=== PATIENT | female | born 1980 | race Caucasian/White ===

== ENCOUNTER 2025-03-05 03:58 | Inpatient (IN) | payer OTHER ==
[2025-03-05] MEDS ORDERED: LIDOCAINE 0.5% (PF) 5 MG/ML (50 ML SDV) SQ PRN (04:39)
[2025-03-05] MEDS ORDERED: TERBUTALINE 1 MG/ML VIAL SQ PRN (04:39)
[2025-03-05] MEDS ORDERED: miSOPROStoL 200 MCG TAB PO PRN (04:39)
[2025-03-05] MEDS ORDERED: CARBOPROST TROMETHAMINE 250 MCG/ML 1 ML AMP IM PRN (04:39)
[2025-03-05] MEDS ORDERED: METHYLERGONOVINE 0.2 MG/ML 1 ML AMP IM PRN (04:39)
[2025-03-05] MEDS ORDERED: TRANEXAMIC 1,000 MG/100ML-NACL 1,000 MG in EMPTY BAG 1 BAG IV PRN (04:39)
[2025-03-05] MEDS ORDERED: miSOPROStoL 200 MCG TAB RECTAL PRN (04:39)
[2025-03-05] MEDS ORDERED: OXYTOCIN 10 UNIT/ML 1 ML VIAL IM PRN (04:39)
[2025-03-05] MEDS: AMPICILLIN 2,000 MG in SODIUM CHLORIDE 0.9% 100 ML IVPB STA (04:54)
[2025-03-05] MEDS: LACTATED RINGERS 1,000 ML IV SCH (04:57)
[2025-03-05 05:45] LABS: RBC 3.59 10*6/uL (4.10-5.20); WBC 16.56 10*3/uL (4.50-10.00)
[2025-03-05 05:46] LABS: Basophils # (A) 0.03 10*3/uL (0.00-0.10); Basophils % (A) 0.2 %; Eosinophils # (A) 0.03 10*3/uL (0.04-0.35); Eosinophils % (A) 0.2 %; HCT 31.3 % (37.2-46.3); HGB 10.4 g/dL (12.0-15.0); Lymphocytes # (A) 0.84 10*3/uL (0.90-5.00); Lymphocytes % (A) 5.1 %; MCHC 33.2 g/dL (32.0-37.0); MCV 87.2 fL (80.0-97.0); Mean Platelet Volume 10.8 fL (9.5-12.2); Monocytes # (A) 0.91 10*3/uL (0.20-1.00); Monocytes % (A) 5.5 %; Neutrophils # (A) 14.67 10*3/uL (1.80-7.70); Neutrophils % (A) 88.5 %; Platelet Count 275 10*3/uL (140-440); RDW 14.1 % (11.5-14.5)
--- NOTE | 2025-03-05 05:52 | P.HPOB ---
History of Present Illness H&P Date: 03/05/25 Chief Complaint: IUP at 41-2/7 weeks, labor This is a 44-year-old 5 para 4 at 41-2/7 weeks that presents to labor and delivery with complaints of regular painful contractions. Estimated due date of 02/24 based on last menstrual period. Patient was previously receiving care outside of the [facility] but transferred to [facility]. Patient has a history of bipolar for which she is seeing [facility], they want to be notified when delivery happens. care has been complicated by diagnosis of intrauterine growth restriction, testing has been normal. Patient had spontaneous rupture of membranes just after admission at [facility]. On blood work this patient is of the type of A+, rubella status immune, hepatitis B surface engine negative, RPR is nonreactive, grew beta strep culture is positive. Review of Systems Constitutional: Denies chills, Denies fatigue, Denies fever Ears, nose, mouth and throat: Denies headache Cardiovascular: Denies leg edema Respiratory: Denies dyspnea Gastrointestinal: Denies nausea, Denies vomiting Genitourinary: Reports Past Medical History History of Any Multi-Drug Resistant Organisms: None Reported Smoking Status: Never smoker Medications and Allergies Home Medications Medication Instructions Recorded Confirmed Type Vit No.179/Iron/Folic 1 each PO DAILY 03/05/25 03/05/25 History [ Tablet] QUEtiapine [SEROquel] 50 mg PO HS 03/05/25 03/05/25 History lamoTRIgine [LaMICtal Xr] 100 mg PO DAILY 03/05/25 03/05/25 History Allergies Allergy/AdvReac Type Severity Reaction Status Date / Time No Known Allergies Allergy Verified 03/05/25 04:04 Exam Osteopathic Statement: *. No significant issues noted on an osteopathic structural exam other than those noted in the History and Physical/Consult. Vital Signs Temp Pulse Resp BP 03/05/25 04:11 97.9 F 93 20 125/71 Intake and Output 03/04/25 03/04/25 03/05/25 14:59 22:59 06:59 Other: Weight 68.946 kg Targeted physical exam is performed on this date in general this is a patient in active labor, breathing appears nonlabored, uterus is gravid, on cervical exam she is completely dilated at 0 station. heart tones are noted to be category 1 contractions are not graphing and she is moving the toco, currently refusing to push. Assessment and Plan (1) Post-dates Current Visit: Yes Status: Acute Code(s): O48.0 - POST-TERM SNOMED Code(s): 10418729 (2) growth restriction Current Visit: Yes Status: Acute Code(s): AYY5066 - SNOMED Code(s): 86521488 (3) Positive GBS test Current Visit: Yes Status: Acute Code(s): B95.1 - STREPTOCOCCUS, GROUP B, CAUSING DISEASES [facility] SNOMED Code(s): 496691613 (4) AMA (advanced maternal age) multigravida 35+ Current Visit: Yes Status: Acute Code(s): O09.529 - SUPERVISION OF ELDERLY MULTIGRAVIDA, UNSPECIFIED TRIMESTER SNOMED Code(s): 607417334 (5) Bipolar 1 disorder Current Visit: Yes Status: Acute Code(s): F31.9 - BIPOLAR DISORDER, UNSPECIFIED SNOMED Code(s): 874722343 Plan: Admit to labor and delivery Anticipate spontaneous vaginal delivery
[2025-03-05] MEDS: OXYTOCIN 30 UNITS/500 ML NS 30 UNIT in SALINE 1 500ML.BAG IV SCH (07:10)
[2025-03-05] MEDS ORDERED: LANOLIN CREAM 1 GM TUBE TOPICAL PRN (07:12)
[2025-03-05] MEDS ORDERED: diphenhydrAMINE 50 MG CAP PO PRN (07:12)
[2025-03-05] MEDS ORDERED: ZOLPIDEM 5 MG TAB PO PRN (07:12)
[2025-03-05] MEDS ORDERED: BENZOCAINE/MENTHOL SPRAY 1 GM/SPRAY AEROSOL TOPICAL PRN (07:12)
[2025-03-05] MEDS ORDERED: diphenhydrAMINE 25 MG CAP PO PRN (07:12)
[2025-03-05] MEDS ORDERED: SIMETHICONE 80 MG CHEWABLE PO PRN (07:12)
[2025-03-05] MEDS ORDERED: diphenhydrAMINE 50 MG/ML 1 ML VIAL IVP PRN ×2 (07:12)
--- NOTE | 2025-03-05 07:16 | P.PROBDLV ---
Vaginal Delivery Note - . Vaginal Delivery Note: Date of service 03/05/2025 Findings viable female delivered at 701, weight of 8 pounds 7.6 ounces This is a 44-year-old 5 para 4-0-0-4 that presented to labor and delivery in active labor. Patient was admitted. Patient had spontaneous rupture of membranes clear in nature soon after admission. Patient progressed to complete began pushing and had a normal spontaneous vaginal delivery of a viable female infant at 701, weight of 8 pounds 7.6 ounces, Apgars of 9 and 9 at 1 and 5 minutes respectively. Umbilical cord was doubly clamped and cut, placenta was delivered spontaneously intact with a three-vessel cord being noted. On inspection the patient's vaginal vault no lacerations were appreciated. Uterus was noted to be firm below the umbilicus. All counts were to be correct x 2. Patient and infant tolerated delivery well and are resting comfortably
[2025-03-05] MEDS: SENNOSIDES-DOCUSATE SODIUM 1 EACH TAB PO SCH (07:49)
[2025-03-05] MEDS: IBUPROFEN 800 MG TAB PO SCH (07:49)
[2025-03-05] MEDS: ACETAMINOPHEN TAB 500 MG TAB PO SCH (12:23)
[2025-03-06 06:39] LABS: Basophils # (A) 0.03 10*3/uL (0.00-0.10); Basophils % (A) 0.2 %; Eosinophils # (A) 0.04 10*3/uL (0.04-0.35); Eosinophils % (A) 0.3 %; HCT 30.6 % (37.2-46.3); HGB 10.5 g/dL (12.0-15.0); Lymphocytes % (A) 10.8 %; MCH 29.7 pg (27.0-32.0); MCHC 34.3 g/dL (32.0-37.0); MCV 86.4 fL (80.0-97.0); Mean Platelet Volume 10.2 fL (9.5-12.2); Monocytes # (A) 0.93 10*3/uL (0.20-1.00); Monocytes % (A) 6.7 %; Neutrophils % (A) 81.4 %; Platelet Count 269 10*3/uL (140-440); RBC 3.54 10*6/uL (4.10-5.20); RDW 14.4 % (11.5-14.5); WBC 13.88 10*3/uL (4.50-10.00)
--- NOTE | 2025-03-06 12:40 | P.PNOBGVD ---
Subjective - Subjective Principal diagnosis: s/p Interval history: The patient is doing well this morning and had no acute events overnight. She complains of pubic bone pain this morning. She reports minimal lochia, passing flatus, voiding without difficulty, ambulating, and eating/drinking without nausea or vomiting. is in the nursery, formula feeding. She denies chest pain, shortness of breathing, fevers, or chills overnight. She denies pain or swelling in the legs. Patient reports: Reports appetite normal, Reports voiding normally, Reports pain well controlled, Reports ambulating normally [place]: other (in nursery) Objective - Latest Vital Signs Latest vital signs: Vital Signs Temp Pulse Resp BP Pulse Ox 03/06/25 08:00 98.6 F 99 16 134/74 03/06/25 00:00 107 H 16 128/78 97 03/05/25 16:00 98.3 F 78 15 137/80 Intake and Output 03/05/25 03/06/25 03/06/25 22:59 06:59 14:59 Output Total 250 Balance -250 Output: Output, Quantitative 250 Blood Loss Other: # Voids 2 1 - Exam Extremities: Present: normal Abdomen: Present: normal appearance, soft Uterus: Present: normal, firm - Labs Labs: Abnormal Lab Results - Last 24 Hours (Table) 03/06/25 Range/Units 06:29 WBC 13.88 H (4.50-10.00) 10*3/uL RBC 3.54 L (4.10-5.20) 10*6/uL Hgb 10.5 L (12.0-15.0) g/dL Hct 30.6 L (37.2-46.3) % Immature Gran # 0.08 H (0.00-0.04) 10*3/uL Neutrophils # 11.30 H (1.80-7.70) 10*3/uL Assessment and Plan Assessment: 44 year old PPD#1 s/p , bipolar disorder Plan: 1. . Patient meeting milestones appropriately. 2. Elevated BPs. Continue to monitor. 3. Bipolar disorder. Following with [facility]. Restart Seroquel 100mg qHS and Lamictal 200mg qHS per [facility]. c/psych. 4. Viable female . In the nursery for leukocytosis. Dispo: anticipate discharge home tomorrow
[2025-03-06] MEDS: lamoTRIgine 100 MG TAB PO SCH (16:23)
[2025-03-06] MEDS: HYDROCORTISONE 2.5% RECTAL CREAM 30 GM TUBE RECTAL PRN (19:05)
[2025-03-06] MEDS: QUEtiapine 100 MG TAB PO SCH (21:09)
[2025-03-06] MEDS: AMPICILLIN 1,000 MG in SODIUM CHLORIDE 0.9% 50 ML IVPB SCH (21:19)
--- NOTE | 2025-03-07 11:18 | P.DS ---
Providers Date of admission: 03/05/25 04:19 Expected date of discharge: 03/07/25 Attending physician: Gemma Veronica MD Consults: 03/06/25 08:19 Consult Physician Routine Consulting Provider: Psychiatry - [facility] Psychiatry Consult Reason/Comments: Bipolar disorder Do you want consulting provider notified?: Already Contacted Primary care physician: Stated None Hospital Course: 44 year old PPD#2 s/p without complications. Patient does have a significant history of bipolar disorder. She follows with [facility] and they have restarted her medications and checked on her while inpatient. The infant is up for adoption to her niece. Social work has seen the patient. The patient is doing well this morning and had no acute events overnight. She has no complaints this morning. She reports minimal lochia, passing flatus, voiding without difficulty, ambulating, and eating/drinking without nausea or vomiting. doing well in the nursery. She denies chest pain, shortness of breathing, fevers, or chills overnight. She denies pain or swelling in the legs. restrictions are reviewed with the patient including pelvic rest for 6 weeks. The patient is encouraged to call the office if she experiences any heavy bleeding, foul-smelling discharge, breast complaints, or any if she has any other concerns. She will follow up in the office in 6 weeks for exam. All questions are answered. Patient Condition at Discharge: Good Plan - Discharge Summary Discharge Rx Participant: No New Discharge Prescriptions: New Ibuprofen [Motrin] 600 mg PO Q6HR PRN #30 tab PRN Reason: Mild Pain (Scale 1 To 3) Docusate [Colace] 100 mg PO BID PRN #60 capsule PRN Reason: Constipation Acetaminophen Tab [Tylenol] 650 mg PO Q6H PRN #30 tab PRN Reason: Mild Pain (Scale 1 To 3) No Action Vit No.179/Iron/Folic [ Tablet] 1 each PO DAILY lamoTRIgine [LaMICtal Xr] 100 mg PO DAILY QUEtiapine [SEROquel] 50 mg PO HS Discharge Medication List Vit No.179/Iron/Folic [ Tablet] 1 each PO DAILY 03/05/25 [History] QUEtiapine [SEROquel] 50 mg PO HS 03/05/25 [History] lamoTRIgine [LaMICtal Xr] 100 mg PO DAILY 03/05/25 [History] Acetaminophen Tab [Tylenol] 650 mg PO Q6H PRN #30 tab 03/07/25 [Rx] Docusate [Colace] 100 mg PO BID PRN #60 capsule 03/07/25 [Rx] Ibuprofen [Motrin] 600 mg PO Q6HR PRN #30 tab 03/07/25 [Rx] Follow up Appointment(s)/Referral(s): Gemma Veronica MD [STAFF PHYSICIAN] - 04/16/25 11:00 am Activity/Diet/Wound Care/Special Instructions: Instructions 1. Do not begin any exercise program for 3 weeks. 2. Do not resume sexual relations for 6 weeks or longer if uncomfortable. 3. You may take tub baths or showers at any time. 4. You may use tampons if desired after 6 weeks. 5. Keep any areas repaired with stitches clean and dry. 6. If you are not nursing, wear a good fitting, supportive bra during the day and limit fluid intake for at least 1 week to prevent breast engorgement. 7. Call the office, , within the next week to make appointment for your 6 week checkup if it has not already been made. 8. Report any of the following occurrences to the doctor promptly: a. Heavy, excessive bleeding b. Chills, fever c. Burning or frequency of urination d. Pain or redness and breasts if nursing e. Increasing pain or swelling of vulva (stitches). In addition to the above instructions, the following additional should be followed: 1. No heavy lifting or straining (exercising) until after 6 week checkup. 2. Keep abdominal incision clean and dry: You may wear a dressing if more comfortable. 3. Make office appointment for 2 weeks after delivery date. Discharge Disposition: HOME SELF-CARE
--- NOTE | 2025-03-07 13:43 | P.CN ---
Psychiatric Consult - . Consult date: 03/07/25 Consult:: 03/07/25 13:37 IDENTIFYING DATA: This patient is a 44-year-old female, unemployed and living with mother REASON FOR REFERRAL: Psychiatry was consulted for bipolar disorder HISTORY OF PRESENT ILLNESS: The patient presented to the hospital in active labor, ultimately delivering female infant vaginally. Patient expresses a 10- year history of bipolar 1 disorder with many ups and downs since then. She states previously being however was from her and ultimately lost her children and moved from [place] to [place], currently living with her mother. 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 She prefers for her relatives to adopt her daughter so that she can remain in contact with her. She reports being on Seroquel 50 mg at bedtime, Lamictal 100 mg at bedtime, Caplyta 42 mg daily for close to a year. She was unable to tolerate the increase in Seroquel to 100 mg, reporting adverse effects including dry mouth and sedation. She was encouraged to speak to her outpatient psychiatrist about possibly stopping this medication as she is currently on 2 medications that works similarly. She follows with [facility] with [facility] and has a psychiatrist there. She reports a history of of depression several months after the of her 3rd and 4th children. She reports tearfulness right now but otherwise stability in terms of mood. At this time patient denies any suicidal or homicidal ideations, intent or plan. Patient denies any auditory, visual hallucinations and denies any paranoia or delusions. Patients admits to using no substances PAST PSYCHIATRIC HISTORY: Patient has a history of bipolar disorder. She is currently on Seroquel 50 mg at bedtime, Lamictal 100 mg at bedtime, Caplyta 42 mg daily. Patient reports several inpatient hospitalizations, most recent being in July 2024 in [place]. She sees Dr. Maya with [facility] with an appointment scheduled for tomorrow however she plans on rescheduling this for a couple of weeks out. Patient denies any history of suicide attempts in the past. PAST MEDICAL HISTORY: Denies. ALLERGIES: as per EMR. CHEMICAL DEPENDENCY HISTORY: as per HPI. FAMILY PSYCHIATRIC/SUBSTANCE USE HISTORY: Patient states her father has PTSD and depression and that mood disorders run in her family, with suspicions that her mother has bipolar disorder that is untreated. SOCIAL HISTORY: Patient was born and raised in [place]. She was living in [place] with her however upon divorce she returned here to [place], living with her mother. She has 5 children. 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 MENTAL STATUS EXAM: General Appearance: Patient appears to be stated age is alert, pleasant, and cooperative. Patient appears to have fair hygiene and grooming wearing hospital gown with fair eye contact. Behavior: Patient is calmly sitting without any agitated behavior. Speech: Patient's speech is fluent and talkative Mood/Affect: Patient reports their mood is "okay", affect is congruent Suicidality/Homicidality: Patient denies having any suicidal or homicidal ideation intent or plan. Perceptions: Patient denies any visual hallucinations and denies any auditory hallucinations Though content/process: There is no evidence of any delusional thought content and thought process is linear and goal-directed. Memory and concentration: AOX3, grossly intact for the purposes of this session. Can spell "WORLD" backwards Judgment and insight: Fair IMPRESSIONS: Bipolar 1 disorder PLAN: -At this time patient DOES NOT meet criteria for inpatient psychiatric admission -Would recommend the following medication changes/additions: Continue Seroquel 50 mg at bedtime, patient to increase Lamictal to 200 mg at bedtime, continue Caplyta 42 mg daily. Discussed with patient the risks with being on 2 antipsychotics however she was resistant to discontinuing the Seroquel and will speak to her outpatient psychiatrist Dr. Maya for further management in a few weeks. -Psychiatry will sign off at this time -Please contact with any questions.
[2025-03-07 18:32] VITALS: BP 127/64; PULSE 94; RESP 16; TEMP 98.5
== END 2025-03-07 18:30 | disposition home or self-care (01) | DRG 560 ==
LOC: FBPOP 03:58 → 4FBP 04:19
PROVIDERS: ADMIT Obstetrics & Gynecology Obstetrics; ATTEND Obstetrics & Gynecology
PROC: 10E0XZZ Delivery of Products of Conception, External Approach (ICD-10-PCS; principal; 2025-03-05)
DX: O48.0 Post-term pregnancy (principal); O99.344 Other mental disorders complicating childbirth; O99.824 Streptococcus B carrier state complicating childbirth; O36.5930 Maternal care for other known or suspected poor fetal growth, third trimester, not applicable or unspecified; F31.9 Bipolar disorder, unspecified; Z37.0 Single live birth; Z3A.41 41 weeks gestation of pregnancy; Z79.899 Other long term (current) drug therapy; Z63.5 Disruption of family by separation and divorce; Z56.0 Unemployment, unspecified
CPT/HCPCS: 84112; 85025; 86850; 86900; 86901; 99213

== ENCOUNTER 2025-03-12 22:50 | Emergency (ER) | payer OTHER ==
--- NOTE | 2025-03-12 23:24 | ED ---
Psych HPI - General Source: patient, EMS, RN notes reviewed, old records reviewed Mode of arrival: EMS Limitations: altered mental status <Jaiden Nina - Last Filed: 03/13/25 03:40> <Tracy Silva - Last Filed: 03/13/25 05:50> - General Chief Complaint: Psychiatric Symptoms Stated Complaint: AMS Time Seen by Provider: 03/12/25 22:57 - History of Present Illness Initial Comments: 44-year-old female presents emergency room via EMS with police for psychiatric evaluation. Patient reportedly had acute psychotic break. Patient stating that she had a recent vaginal delivery here at [facility]. Patient does have a history of bipolar disorder and was restarted on her Lamictal and Seroquel. Patient denies being suicidal patient has had very erratic behavior and multiple complaints. Patient does complain of flank pain stating that she believes stone or possible infection. Patient states that his severe pain. Patient states he is also had some chills. Patient was brought in via EMS. Patient mother stating that she became very erratic and was picked up naked by EMS. Patient had a vaginal delivery without complications per record. Patient denies any significant vaginal discharge. (Jaiden Nina) - Related Data Home Medications Medication Instructions Recorded Confirmed Vit No.179/Iron/Folic 1 each PO DAILY 03/05/25 03/05/25 [ Tablet] QUEtiapine [SEROquel] 50 mg PO HS 03/05/25 03/05/25 lamoTRIgine [LaMICtal Xr] 100 mg PO DAILY 03/05/25 03/05/25 Previous Rx's Medication Instructions Recorded Acetaminophen Tab [Tylenol] 650 mg PO Q6H PRN #30 tab 03/07/25 Docusate [Colace] 100 mg PO BID PRN #60 capsule 03/07/25 Ibuprofen [Motrin] 600 mg PO Q6HR PRN #30 tab 03/07/25 QUEtiapine [SEROquel] 50 mg PO HS #30 tab 03/07/25 Allergies Allergy/AdvReac Type Severity Reaction Status Date / Time No Known Allergies Allergy Verified 03/05/25 04:04 Review of Systems ROS Other: All systems not noted in ROS Statement are negative. <Jaiedn Nina - Last Filed: 03/13/25 03:40> ROS Other: All systems not noted in ROS Statement are negative. <Tracy Silva - Last Filed: 03/13/25 05:50> ROS Statement: Those systems with pertinent positive or pertinent negative responses have been documented in the HPI. Past Medical History Past Medical History: No Reported History Additional Past Medical History / Comment(s): kidney stones, Pylonephritis, cold sores History of Any Multi-Drug Resistant Organisms: None Reported Additional Past Surgical History / Comment(s): Kidney surgery Past Anesthesia/Blood Transfusion Reactions: Previous Problems w/ Anesthesia Past Psychological History: Anxiety, Bipolar, Depression Smoking Status: Never smoker <Jaiden Nina - Last Filed: 03/13/25 03:40> General Exam Limitations: altered mental status General appearance: alert, in no apparent distress, anxious Head exam: Present: atraumatic, normocephalic, normal inspection Eye exam: Present: normal appearance, PERRL, EOMI. Absent: scleral icterus, conjunctival injection, periorbital swelling ENT exam: Present: normal exam, mucous membranes moist Neck exam: Present: normal inspection, full ROM. Absent: tenderness, meningismus, lymphadenopathy Respiratory exam: Present: normal lung sounds bilaterally. Absent: respiratory distress, wheezes, rales, rhonchi, stridor Cardiovascular Exam: Present: regular rate, normal rhythm, normal heart sounds. Absent: systolic murmur, diastolic murmur, rubs, gallop, clicks GI/Abdominal exam: Present: soft, tenderness, normal bowel sounds. Absent: distended, guarding, rebound, rigid Back exam: Present: CVA tenderness (R), CVA tenderness (L) Neurological exam: Present: alert Psychiatric exam: Present: manic Skin exam: Present: warm, dry, intact, normal color. Absent: rash <Jaiden Nina - Last Filed: 03/13/25 03:40> Course Vital Signs 03/12/25 03/12/25 03/13/25 23:04 23:41 00:58 Temperature 100.6 F H Pulse Rate 70 86 Respiratory 16 16 Rate Blood Pressure 169/101 144/88 147/82 O2 Sat by Pulse 95 96 Oximetry 03/13/25 03/13/25 03/13/25 03:50 05:00 05:40 Temperature 102.0 F H 100.3 F H Pulse Rate 97 104 H Respiratory 18 18 Rate Blood Pressure 153/78 119/76 O2 Sat by Pulse 96 95 Oximetry Medical Decision Making - Lab Data Result diagrams: 03/12/25 23:21 03/12/25 23:21 <Jaiden Nina - Last Filed: 03/13/25 03:40> - Lab Data Result diagrams: 03/12/25 23:21 03/12/25 23:21 <Tracy Silva - Last Filed: 03/13/25 05:50> - Medical Decision Making Was pt. sent in by a medical professional or institution (, PA, [employer]CE[employer]WARDER, urgent care, hospital, or skilled nursing...) When possible be specific @ -No Did you speak to anyone other than the patient for history (EMS, parent, family, police, friend...)? What history was obtained from this source @ -No Did you review nursing and triage notes (agree or disagree)? Why? @ -I reviewed and agree with nursing and triage notes Were old charts reviewed (outside hosp., previous admission, EMS record, old EKG, old radiological studies, urgent care reports/EKG's, skilled nursing records)? Report findings @ -No old charts were reviewed Differential Diagnosis (chest pain, altered mental status, abdominal pain women, abdominal pain men, vaginal bleeding, weakness, fever, dyspnea, syncope, headache, dizziness, GI bleed, back pain, seizure, CVA, palpatations, mental health, musculoskeletal)? @ -Differential Mental Health Depression, anxiety, bipolar, psychosis, schizophrenia, borderline personality, situational depression, adjustment disorder, behavioral disorder, brain tumor, malingering, substance abuse, encephalopathy, medication reaction, dementia, hypothyroidism, degenerative neurologic disorder, lupus.... This is not meant to be all-inclusive list differential Abdominal Pain Women: Appendicitis, Cholecystitis, diverticulosis, ischemic bowel, pancreatitis, hepatitis, UTI, gastroenteritis, AAA, incarcerated hernia, bowel obstruction, constipation, inflammatory bowel, hepatitis, peptic ulcer disease, splenic infarction, perforated viscus, vulvitis, ovarian torsion, PID, kidney stone, placenta abruption, this is not meant to be an all-inclusive list EKG interpreted by me (3pts min.). @ -None X-rays interpreted by me (1pt min.). @ -None done CT interpreted by me (1pt min.). @ -None done U/S interpreted by me (1pt. min.). @ -Ultrasound pelvic showing changes, no other acute process What testing was considered but not performed or refused? (CT, X-rays, U/S, labs)? Why? @ -None What meds were considered but not given or refused? Why? @ -None Did you discuss the management of the patient with other professionals (professionals i.e. , PA, [employer]ER, lab, RT, psych nurse, bilingual social worker, subpoena server, teacher, chief fundraising officer, showcase maker)? Give summary @ -Sound physician for admission Was smoking cessation discussed for >3mins.? @ -No Was critical care preformed (if so, how long)? @ -No Were there social determinants of health that impacted care today? How? (Homelessness, low income, unemployed, alcoholism, drug addiction, rivera sportation, low edu. Level, literacy, decrease access to med. care, [facility], rehab)? @ -No Was there de-escalation of care discussed even if they declined (Discuss DNR or withdrawal of care, Hospice)? DNR status @ -No What co-morbidities impacted this encounter? (DM, HTN, Smoking, COPD, CAD, Cancer, CVA, ARF, Chemo, Hep., AIDS, mental health diagnosis, sleep apnea, morbid obesity)? @ -None Was patient admitted / discharged? Hospital course, mention meds given and route, prescriptions, significant lab abnormalities, going to OR and other pertinent info. @ -Admitted patient found to have acute pyelonephritis, significant leukocytosis, fever with nitrate positive esterase and WBCs. Patient did have blood culture, urine culture, patient was given 2 g of Rocephin and started on maintenance fluids after IV fluid bolus. Patient was provided analgesics. Patient left consult to psychiatry Undiagnosed new problem with uncertain prognosis? @ -No Drug Therapy requiring intensive monitoring for toxicity (Heparin, Nitro, Insulin, Cardizem)? @ -No Were any procedures done? @ -No Diagnosis/symptom? @ -Acute pyelonephritis bipolar manic Acute, or Chronic, or Acute on Chronic? @ -Acute Uncomplicated (without systemic symptoms) or Complicated (systemic symptoms)? @ -Complicated Side effects of treatment? @ -No Exacerbation, Progression, or Severe Exacerbation? @ -No Poses a threat to life or bodily function? How? (Chest pain, [place], [place], pneumonia, PE, COPD, DKA, ARF, appy, cholecystitis, CVA, Diverticulitis, Homicidal, Suicidal, threat to staff... and all critical care pts) @ -[Yes sepsis causing endorgan failure (KelleJaiden Umana) Patient was seen by HUONG and considered for admission for pyelonephritis as well as acute psychosis however CT abdomen pelvis was performed and showed a very large at least 2.5 cm right sided ureterolithiasis. Case was discussed with Dr. Hansen due to obstructing and septic stone. He reviewed patient's case and recommends transfer to a facility with interventional radiology because of the size of the stone will likely not be able to be fixed with stenting. On reassessment pt is sleeping comfortably, updated pt to plan for transfer, to which she was agreeable. (Tracy Silva) - Lab Data Lab Results 03/12/25 03/12/25 03/12/25 Range/Units 22:30 22:30 23:21 WBC 17.13 H (4.50-10.00) 10*3/uL RBC 4.40 (4.10-5.20) 10*6/uL Hgb 12.6 (12.0-15.0) g/dL Hct 38.2 (37.2-46.3) % MCV 86.8 (80.0-97.0) fL MCH 28.6 (27.0-32.0) pg MCHC 33.0 (32.0-37.0) g/dL Plt Count 441 H (140-440) 10*3/uL MPV 9.7 (9.5-12.2) fL Immature Gran % (Auto) 0.5 % Neutrophils % 92.5 % Lymphocytes % 2.6 % Monocytes % 4.1 % Eosinophils % 0.1 % Basophils % 0.2 % Immature Gran # 0.08 H (0.00-0.04) 10*3/uL Neutrophils # 15.85 H (1.80-7.70) 10*3/uL Lymphocytes # 0.45 L (0.90-5.00) 10*3/uL Monocytes # 0.70 (0.20-1.00) 10*3/uL Eosinophils # 0.01 L (0.04-0.35) 10*3/uL Basophils # 0.04 (0.00-0.10) 10*3/uL Sodium (137-145) mmol/L Potassium (3.5-5.1) mmol/L Chloride (98-107) mmol/L Carbon Dioxide (22-30) mmol/L Anion Gap mmol/L BUN (7-17) mg/dL Creatinine (0.52-1.04) mg/dL Est GFR (CKD-EPI)AfAm (>60 ml/min/1.73 sqM) Est GFR (CKD-EPI)NonAf (>60 ml/min/1.73 sqM) Glucose (74-99) mg/dL Plasma Lactic Acid Jose (0.7-2.0) mmol/L Uric Acid (3.7-7.4) mg/dL Calcium (8.4-10.2) mg/dL Total Bilirubin (0.2-1.3) mg/dL AST (14-36) U/L ALT (4-34) U/L Alkaline Phosphatase (38-126) U/L Lactate Dehydrogenase (120-246) U/L Total Protein (6.3-8.2) g/dL Albumin (3.5-5.0) g/dL Urine Color Colorless Urine Appearance Cloudy H (Clear) Urine pH 7.0 (5.0-8.0) Ur Specific [place] 1.012 (1.001-1.035) Urine Protein Trace H (Negative) Urine Glucose (UA) Negative (Negative) Urine Ketones Negative (Negative) Urine Blood Moderate H (Negative) Urine Nitrite Positive H (Negative) Urine Bilirubin Negative (Negative) Urine Urobilinogen <2.0 (<2.0) mg/dL Ur Leukocyte Esterase Large H (Negative) Urine RBC 32 H (0-5) /hpf Urine WBC >182 H (0-5) /hpf Urine WBC Clumps Moderate H (None) /hpf Ur Squamous Epith Cells 2 (0-4) /hpf Urine Bacteria Occasional H (None) /hpf Urine Mucus Rare H (None) /hpf Urine Yeast (Budding) Few H (None) /hpf Urine Opiates Screen Not Detected (NotDetected) Ur Oxycodone Screen Not Detected (NotDetected) Urine Methadone Screen Not Detected (NotDetected) Ur Barbiturates Screen Not Detected (NotDetected) U Tricyclic Antidepress Not Detected (NotDetected) Ur Phencyclidine Scrn Not Detected (NotDetected) Ur Amphetamines Screen Not Detected (NotDetected) U Methamphetamines Scrn Not Detected (NotDetected) U Benzodiazepines Scrn Not Detected (NotDetected) Urine Cocaine Screen Not Detected (NotDetected) U Marijuana (THC) Screen Not Detected (NotDetected) 03/12/25 03/12/25 Range/Units 23:21 23:21 WBC (4.50-10.00) 10*3/uL RBC (4.10-5.20) 10*6/uL Hgb (12.0-15.0) g/dL Hct (37.2-46.3) % MCV (80.0-97.0) fL MCH (27.0-32.0) pg MCHC (32.0-37.0) g/dL Plt Count (140-440) 10*3/uL MPV (9.5-12.2) fL Immature Gran % (Auto) % Neutrophils % % Lymphocytes % % Monocytes % % Eosinophils % % Basophils % % Immature Gran # (0.00-0.04) 10*3/uL Neutrophils # (1.80-7.70) 10*3/uL Lymphocytes # (0.90-5.00) 10*3/uL Monocytes # (0.20-1.00) 10*3/uL Eosinophils # (0.04-0.35) 10*3/uL Basophils # (0.00-0.10) 10*3/uL Sodium 138 (137-145) mmol/L Potassium 4.3 (3.5-5.1) mmol/L Chloride 102 (98-107) mmol/L Carbon Dioxide 24 (22-30) mmol/L Anion Gap 12 mmol/L BUN 17 (7-17) mg/dL Creatinine 0.81 (0.52-1.04) mg/dL Est GFR (CKD-EPI)AfAm >90 (>60 ml/min/1.73 sqM) Est GFR (CKD-EPI)NonAf 90 (>60 ml/min/1.73 sqM) Glucose 104 H (74-99) mg/dL Plasma Lactic Acid Jose 1.9 (0.7-2.0) mmol/L Uric Acid 4.5 (3.7-7.4) mg/dL Calcium 9.6 (8.4-10.2) mg/dL Total Bilirubin 0.7 (0.2-1.3) mg/dL AST 32 (14-36) U/L ALT 26 (4-34) U/L Alkaline Phosphatase 130 H (38-126) U/L Lactate Dehydrogenase 313 H (120-246) U/L Total Protein 7.0 (6.3-8.2) g/dL Albumin 4.0 (3.5-5.0) g/dL Urine Color Urine Appearance (Clear) Urine pH (5.0-8.0) Ur Specific [place] (1.001-1.035) Urine Protein (Negative) Urine Glucose (UA) (Negative) Urine Ketones (Negative) Urine Blood (Negative) Urine Nitrite (Negative) Urine Bilirubin (Negative) Urine Urobilinogen (<2.0) mg/dL Ur Leukocyte Esterase (Negative) Urine RBC (0-5) /hpf Urine WBC (0-5) /hpf Urine WBC Clumps (None) /hpf Ur Squamous Epith Cells (0-4) /hpf Urine Bacteria (None) /hpf Urine Mucus (None) /hpf Urine Yeast (Budding) (None) /hpf Urine Opiates Screen (NotDetected) Ur Oxycodone Screen (NotDetected) Urine Methadone Screen (NotDetected) Ur Barbiturates Screen (NotDetected) U Tricyclic Antidepress (NotDetected) Ur Phencyclidine Scrn (NotDetected) Ur Amphetamines Screen (NotDetected) U Methamphetamines Scrn (NotDetected) U Benzodiazepines Scrn (NotDetected) Urine Cocaine Screen (NotDetected) U Marijuana (THC) Screen (NotDetected) Disposition Time of Disposition: 03:35 <Jaiden Nina - Last Filed: 03/13/25 03:40> Time of Disposition: 05:50 - Out of Hospital Transfer - Req. Specs Out of Hospital Transfer - Requested Specifics: Other Emergency Center <Tracy Silva - Last Filed: 03/13/25 05:50> Clinical Impression: Bipolar disease, manic, Pyelonephritis, Ureterolithiasis Disposition: OTHER INSTITUTION NOT DEFINED Condition: Stable Referrals: None,Stated [Primary Care Provider] - 1-2 days
[2025-03-12] MEDS: KETOROLAC 15 MG/ML 1 ML VIAL IVP STA (23:25)
[2025-03-12] MEDS: LORazepam 1 MG/0.5 ML VIAL IV STA (23:26)
[2025-03-12 23:31] LABS: Basophils # (A) 0.04 10*3/uL (0.00-0.10); Basophils % (A) 0.2 %; Eosinophils # (A) 0.01 10*3/uL (0.04-0.35); Eosinophils % (A) 0.1 %; HCT 38.2 % (37.2-46.3); HGB 12.6 g/dL (12.0-15.0); Lymphocytes # (A) 0.45 10*3/uL (0.90-5.00); Lymphocytes % (A) 2.6 %; MCH 28.6 pg (27.0-32.0); MCV 86.8 fL (80.0-97.0); Mean Platelet Volume 9.7 fL (9.5-12.2); Monocytes % (A) 4.1 %; Neutrophils # (A) 15.85 10*3/uL (1.80-7.70); Neutrophils % (A) 92.5 %; Platelet Count 441 10*3/uL (140-440); RDW 13.8 % (11.5-14.5); WBC 17.13 10*3/uL (4.50-10.00)
[2025-03-12] MEDS: ACETAMINOPHEN TAB 325 MG TAB PO STA (23:35)
[2025-03-13 00:49] LABS: ALT 26 U/L (4-34); AST 32 U/L (14-36); African American GFR (CKD) >90 (>60 ml/min/1.73 sqM); Alkaline Phosphatase 130 U/L (38-126); Anion Gap 12 mmol/L; Blood Urea Nitrogen 17 mg/dL (7-17); Calcium 9.6 mg/dL (8.4-10.2); Carbon Dioxide 24 mmol/L (22-30); Chloride 102 mmol/L (98-107); Glucose 104 mg/dL (74-99); LDH 313 U/L (120-246); Non-African American GFR(CKD) 90 (>60 ml/min/1.73 sqM); Potassium 4.3 mmol/L (3.5-5.1); Sodium 138 mmol/L (137-145); Total Bilirubin 0.7 mg/dL (0.2-1.3); Uric Acid 4.5 mg/dL (3.7-7.4)
[2025-03-13 00:52] LABS: Appearance,Urine Cloudy (Clear); Bacteria,Urine Occasional /hpf; Bilirubin,Urine Negative (Negative); Blood,Urine Moderate (Negative); Budding Yeast,Urine Few /hpf; Color,Urine Colorless; Glucose,Urine (UA) Negative (Negative); Ketones,Urine Negative (Negative); Leukocyte Esterase,Urine Large (Negative); Mucus,Urine Rare /hpf; Nitrite,Urine Positive (Negative); Protein,Urine Trace (Negative); RBC,Urine 32 /hpf (0-5); Specific Gravity,Urine 1.012 (1.001-1.035); Squamous Epithelial Cell,Urine 2 /hpf (0-4); Urobilinogen,Urine <2.0 mg/dL (<2.0); WBC,Urine >182 /hpf (0-5)
[2025-03-13 01:02] LABS: Cocaine Screen,Urine Not Detected (NotDetected); Phencyclidine Screen,Urine Not Detected (NotDetected); Urn Cannabinoid Scrn Not Detected (NotDetected)
[2025-03-13 01:03] LABS: Amphetamine Screen,Urine Not Detected (NotDetected); Barbiturate Screen,Urine Not Detected (NotDetected); Benzodiazepines Screen,Urine Not Detected (NotDetected); Methadone Screen, Urine Not Detected (NotDetected); Opiate Screen,Urine Not Detected (NotDetected); Oxycodone Screen, Urine Not Detected (NotDetected); Tricyclic Antidepressant,Urine Not Detected (NotDetected)
[2025-03-13] MEDS: HYDROmorphone 0.5 MG/0.5 ML SYRINGE IVP PRN (02:13)
[2025-03-13] MEDS: IBUPROFEN 600 MG TAB PO STA (02:40)
[2025-03-13] MEDS: HYDROmorphone 0.5 MG/0.5 ML SYRINGE IVP STA (03:12)
[2025-03-13] MEDS: SODIUM CHLORIDE 0.9% 1,000 ML IV SCH ×2 (03:12→05:10)
[2025-03-13] MEDS ORDERED: HYDROmorphone 0.5 MG/0.5 ML SYRINGE IVP PRN (03:35)
[2025-03-13] MEDS ORDERED: KETOROLAC 15 MG/ML 1 ML VIAL IVP PRN (03:35)
[2025-03-13] MEDS ORDERED: IBUPROFEN 400 MG TAB PO PRN (03:35)
[2025-03-13] MEDS ORDERED: ONDANSETRON 4 MG/2 ML VIAL IVP PRN (03:35)
[2025-03-13] MEDS ORDERED: NALOXONE 0.4 MG/ML 1 ML VIAL IV PRN (03:35)
[2025-03-13] MEDS: QUEtiapine 50 MG TAB PO STA (03:45)
--- NOTE | 2025-03-13 03:53 | US ---
EXAM: US Pelvis Transabdominal, Complete CLINICAL HISTORY: Pain, infection TECHNIQUE: Real-time complete transabdominal pelvic ultrasound with image documentation. COMPARISON: No relevant prior studies available. FINDINGS: Uterus/cervix: 13.5 x 7.3 x 8.4 cm. Retroverted Normal endometrial stripe thickness at 1 cm. No myometrial mass. 3.2 x 2.1 x 3.2cm hypoechoic, heterogeneous area seen within the lower uterine segment/ cervix without vascularity. Right ovary: Obscured by bowel gas. Left ovary: Obscured by bowel gas. Adnexa: No free fluid or adnexal mass. Incidental dilated right adnexal vasculature. IMPRESSION: Nonvascular hypoechoic heterogeneous collection lower uterine segment, possibly hemorrhage/fluid. No vascularity or hyperemia to indicate retained products of conception or abscess. Ovaries not visualized.
[2025-03-13] MEDS: ACETAMINOPHEN TAB 325 MG TAB PO PRN (03:54)
--- NOTE | 2025-03-13 05:17 | CT ---
EXAM: CT Abdomen and Pelvis With Intravenous Contrast CLINICAL HISTORY: ITS.REASON CT Reason: sepsis with UTI TECHNIQUE: Axial computed tomography images of the abdomen and pelvis with intravenous contrast. CTDI is 13.8 mGy and DLP is 727.3 mGy-cm. This CT exam was performed using one or more of the following dose reduction techniques: automated exposure control, adjustment of the mA and/or kV according to patient size, and/or use of iterative reconstruction technique. COMPARISON: No relevant prior studies available. FINDINGS: Lung bases: Unremarkable. No mass. No consolidation. ABDOMEN: Liver: Unremarkable. No mass. Gallbladder and bile ducts: Unremarkable. No calcified stones. No ductal dilation. Pancreas: Unremarkable. No mass. No ductal dilation. Spleen: Unremarkable. No splenomegaly. Adrenals: Unremarkable. No mass. Kidneys and ureters: Large stone in the right UPJ measuring 2.4 cm resulting in moderate to severe right hydronephrosis. Multiple nonobstructing left nephrolithiasis the largest of which is in the renal pelvis and measures 2.3 cm. There is mild left hydronephrosis. Stomach and bowel: Unremarkable. No obstruction. No mucosal thickening. PELVIS: Appendix: No findings to suggest acute appendicitis. Bladder: Unremarkable. No mass. Reproductive: Enlarged post-gravid uterus with complex fluid within the endometrial canal, possibly blood. ABDOMEN and PELVIS: Intraperitoneal space: Unremarkable. No free air. No significant fluid collection. Bones/joints: No acute fracture. No dislocation. Soft tissues: Unremarkable. Vasculature: Unremarkable. No abdominal aortic aneurysm. Lymph nodes: Unremarkable. No enlarged lymph nodes. IMPRESSION: 1. Large stone in the right UPJ measuring 2.4 cm resulting in moderate to severe right hydronephrosis. 2. Multiple nonobstructing left nephrolithiasis the largest of which is in the renal pelvis and measures 2.3 cm. There is mild left hydronephrosis. 3. Enlarged post-gravid uterus with complex fluid within the endometrial canal, possibly blood.
--- NOTE | 2025-03-13 05:33 | P.HPIM ---
History of Present Illness H&P Date: 03/13/25 Chief Complaint: Flank pain Patient is a 44 year old female with kidney stones, bipolar disorder who presented to the ED for psychiatric evaluation. She reportedly had an acute psychotic break she denies being suicidal but had a very erratic behavior and was brought in via EMS. Patient reports having flank pain. Associated with that she reportedly experienced chills. Moreover she had a recent vaginal delivery on 03/05/25 here at this facility. Patient does not answer any questions. History obtained from ED staff and by reviewing ED documentation. Denies shortness of breath, cough, chest pain, palpitations, nausea, vomiting, hematuria, dysuria, hematochezia, melena, headache, slurred speech, numbness, tingling, dizziness, lightheadedness, blurred vision, double vision. ED documentation reviewed. In the ED patient was treated with acetaminophen, Dilaudid, ibuprofen, ketorolac, lorazepam, quetiapine, Rocephin, 0.9 normal saline. Vitals on admission T 100.6 F, [place] 70 bpm, RR 16, BP 169/101, SpO2 95% on room air Most recent vital T 102 F, [place] 97 bpm, RR 18, BP 153/78, S to 96% on room air Pelvic ultrasound shows nonvascular hypoechoic heterogeneous collection lower uterine segment possibly hemorrhage/fluid, no vascularity or hyperemia to indicate retained products of conception or abscess, ovaries not visualized Abdomen pelvis CT scan shows a large stone in the right UPJ measuring 2.4 cm resulting in moderate to severe right hydronephrosis, multiple nonobstructing left nephrolithiasis the largest of which is in the renal pelvis and measures 2.3 cm, there is mild left hydronephrosis, enlarged post gravid uterus with complex fluid within the endometrial canal and possibly blood Labs on admission show WBC 17.13, hemoglobin 12.6, platelet 441, sodium 138, potassium 4.3, creatinine 0.81, glucose 104, ALP 130, LDH 313 UA shows cloudy appearance, trace protein, moderate blood, positive nitrite, large leukocyte esterase, 32 RBC, more than 192 WBC, moderate WBC clumps, occasional bacteria, rare mucus, few budding yeast Urine tox screen is negative Review of systems: Pertinent positives and negatives as discussed in HPI, a complete review of sys tems was performed and all other systems are negative. Physical examination: Vital signs reviewed General: in acute distress, appears at stated age Derm: warm, dry, intact Head: atraumatic, normocephalic, symmetric Eyes: EOMI, anicteric sclera Mouth: no lip lesion, mucus membranes moist Cardiovascular: S1 S2 reg, no murmur Lungs: CTA bilateral, no rhonchi, no rales, no accessory muscle use Abdominal: tender to palpation Extremities: No cyanosis, clubbing, or pedal edema. Neuro: Alert, Oriented, Gross neurological examination did not reveal any focal deficits. Psych: well appearing, appropriate affect Assessment/Plan: Patient is a 44 year old female with kidney stones, bipolar disorder who presented to the ED for flank pain and psychiatric evaluation. Patient admitted to internal medicine service. Active: #. Nephrolithiasis #. Moderate to severe Hydronephrosis due to 2.4 cm kidney stone in right UPJ #. Sepsis secondary to above #. Leukocytosis secondary to above #. History of kidney stones #. Recent vaginal delivery Pelvic ultrasound shows nonvascular hypoechoic heterogeneous collection lower uterine segment possibly hemorrhage/fluid, no vascularity or hyperemia to indicate retained products of conception or abscess, ovaries not visualized UA shows cloudy appearance, trace protein, moderate blood, positive nitrite, large leukocyte esterase, 32 RBC, more than 192 WBC, moderate WBC clumps, occasional bacteria, rare mucus, few budding yeast Abdomen pelvis CT scan shows a large stone in the right UPJ measuring 2.4 cm resulting in moderate to severe right hydronephrosis, multiple nonobstructing left nephrolithiasis the largest of which is in the renal pelvis and measures 2.3 cm, there is mild left hydronephrosis, enlarged post gravid uterus with complex fluid within the endometrial canal and possibly blood Received Rocephin and 1L 0.9 NS bolus in the ED Continue Rocephin 2gm IVPB Q24HR Continue 0.9 NS at 130 ml/hr Dilaudid for pain management Tylenol and Motrin for fever Obtain urine culture and blood culture Monitor vital signs Monitor CBC Consult urology #. Nausea and vomiting Continue Ondansetron 4 mg IVP Q8HR PRN #. Bipolar disorder Received Lorazepam and Quetiapine in the ED Haldol 5mg IM Q6HR PRN, Haldol 5mg PO Q6HR PRN Resume home meds once verified by pharmacy Psychiatry consulted F: 0.9 NS at 130 ml/hr E: Replete as required N: NPO A: Ambulatory DVT prophylaxis: Lovenox 40 mg SQ daily The patient is admitted with an anticipated more than 2 midnight stay for evaluation of flank pain CODE STATUS: Full code Discussed with: Patient Anticipated discharge place: Pending clinical course Dictation was produced using [email or web address] dictation software. please excuse any grammatical, word or spelling errors. Jake Mendez MD PGY-1 IM Attestation : Patient seen and examined with medical records field technician. Agree with above assessment and plan. This is a 44-year-old female patient with a past medical history of bipolar disorder presented with seems to be a manic episode. Patient presenting with erratic behavior and family's concern. Reports of bilateral flank tenderness specially at the right side. She met sepsis criteria with fever and leukocytosis. Urine analysis suggestive of UTI and she was treated with IV Rocephin. CT abdomen and pelvis with IV contrast was done showing moderate to s evere hydronephrosis with a large kidney stone. Urology contacted and likely patient will be taken to the OR . Patient recently had vaginal delivery with pelvic ultrasound not remarkable. Pending urine analysis and blood culture Time spent : 45 min Past Medical History Past Medical History: No Reported History Additional Past Medical History / Comment(s): kidney stones, Pylonephritis, cold sores History of Any Multi-Drug Resistant Organisms: None Reported Additional Past Surgical History / Comment(s): Kidney surgery Past Anesthesia/Blood Transfusion Reactions: Previous Problems w/ Anesthesia Past Psychological History: Anxiety, Bipolar, Depression Smoking Status: Never smoker Medications and Allergies Home Medications Medication Instructions Recorded Confirmed Type Vit No.179/Iron/Folic 1 each PO DAILY 03/05/25 03/05/25 History [ Tablet] QUEtiapine [SEROquel] 50 mg PO HS 03/05/25 03/05/25 History lamoTRIgine [LaMICtal Xr] 100 mg PO DAILY 03/05/25 03/05/25 History Acetaminophen Tab [Tylenol] 650 mg PO Q6H PRN #30 tab 03/07/25 Rx Docusate [Colace] 100 mg PO BID PRN #60 capsule 03/07/25 Rx Ibuprofen [Motrin] 600 mg PO Q6HR PRN #30 tab 03/07/25 Rx QUEtiapine [SEROquel] 50 mg PO HS #30 tab 03/07/25 Rx Allergies Allergy/AdvReac Type Severity Reaction Status Date / Time No Known Allergies Allergy Verified 03/05/25 04:04 Physical Exam Vitals: Vital Signs Temp Pulse Resp BP Pulse Ox 03/13/25 03:50 102.0 F H 97 18 153/78 96 03/13/25 00:58 86 16 147/82 96 03/12/25 23:41 144/88 03/12/25 23:04 100.6 F H 70 16 169/101 95 Intake and Output 03/12/25 03/12/25 03/13/25 14:59 22:59 06:59 Other: Weight 58.967 kg Results CBC & Chem 7: 03/12/25 23:21 03/12/25 23:21 Labs: Abnormal Lab Results - Last 24 Hours (Table) 03/12/25 03/12/25 03/12/25 Range/Units 22:30 23:21 23:21 WBC 17.13 H (4.50-10.00) 10*3/uL Plt Count 441 H (140-440) 10*3/uL Immature Gran # 0.08 H (0.00-0.04) 10*3/uL Neutrophils # 15.85 H (1.80-7.70) 10*3/uL Lymphocytes # 0.45 L (0.90-5.00) 10*3/uL Eosinophils # 0.01 L (0.04-0.35) 10*3/uL Glucose 104 H (74-99) mg/dL Alkaline Phosphatase 130 H (38-126) U/L Lactate Dehydrogenase 313 H (120-246) U/L Urine Appearance Cloudy H (Clear) Urine Protein Trace H (Negative) Urine Blood Moderate H (Negative) Urine Nitrite Positive H (Negative) Ur Leukocyte Esterase Large H (Negative) Urine RBC 32 H (0-5) /hpf Urine WBC >182 H (0-5) /hpf Urine WBC Clumps Moderate H (None) /hpf Urine Bacteria Occasional H (None) /hpf Urine Mucus Rare H (None) /hpf Urine Yeast (Budding) Few H (None) /hpf
--- NOTE | 2025-03-13 05:53 | P.EN ---
CT abdomen pelvis returned back showing moderate to severe hydronephrosis at the right side with large kidney stone. Patient met sepsis criteria and has pyelonephritis. Urology was contacted and recommended IR intervention. Patient will be transferred from our ER to a different facility.
[2025-03-13] MEDS ORDERED: haloperidoL 5 MG TAB PO PRN (06:00)
[2025-03-13] MEDS ORDERED: HALOPERIDOL LACTATE 5 MG/ML 1 ML VIAL IM PRN (06:00)
[2025-03-13 07:51] VITALS: BP 112/71; PULSE 98; RESP 16; TEMP 97.3
== END 2025-03-13 08:07 | disposition other institution (70) ==
LOC: EC 22:50 → UNDOADMIN 03-13 03:53 → 5NMEDONC 03-13 03:53 → EC 03-13 08:07
DX: F31.9 Bipolar disorder, unspecified (principal); N13.6 Pyonephrosis
CPT/HCPCS: 36415; 80053; 83605; 83615; 84550; 85025; 80306; 99285; 96375 ×3; 96365; 96366; 96376; J2060; J1885; 74177; 76856; 81001; 87040; 87086